=== PATIENT | male | born 1955 | race Two or more races ===

== ENCOUNTER → 2019-02-22 | Day surgery (SDC) | payer OTHER ==
[2019-01-08 12:14] LABS: HEMATOCRIT 31.2 % (38.2-49.6); HEMOGLOBIN 10.8 g/dL (14.0-18.0)
[2019-01-08 12:34] LABS: ANION GAP 10.7 mmol/L (8-16); CALCIUM 9.5 mg/dL (8.4-10.2); CREATININE, SERUM 1.24 mg/dL (0.72-1.25); POTASSIUM 5.7 mmol/L (3.5-5.1)
[~2019-02-22] MED LIST: BALANCED SALT SOLN (OPTH) 15 ML BTL IO ONE; BUPIVACAINE HC 0.75% PF 10ML VIAL INJ ONE; CHONDR SU A NA/HYALUR SOD 1 EACH KIT IO ONE; CYCLOPENTOLATE HCL 2% OPTH SOLN 2 ML BTL OP ONE; EPINEPHRINE HCL 1:1000 1ML 1 MG/ML AMP ONE; FENTANYL CITRATE/PF 100MCG/2 ML INJ ONE; FLOMAX0.4 MG PO; GATIFLOXACIN(OPTH) 5 ML LIQD ONE; LIDOCAINE 2% /EPINEPHRINE 20 ML SDV INJ ONE; LIDOCAINE HCL-PF 4% 40 MG/1 ML 5ML AMP ONE; METFORMIN HCL500 MG PO; MIDAZOLAM HCL 2 MG/2 ML VIAL ONE; MUCUS RELIEF D1 EAC1 PO; NOVOLOG100 UNIT/1 SC; OXYBUTYNIN CHLOR5 MG PO; PHENYLEPHRINE HCL 2 ML DROPS ONE; PILOCARPINE HCL(OPTH) 15 ML LIQD ONE; POVIDONE IODINE 5% (OPTH) 30 ML BTL ONE; PRILOSEC10 M1 PO; PROPOFOL IV EMULSION 10 MG/ML 20 ML VIAL ONE; TOBRAMYCIN/DEXAMETHASONE(OPTH) 3.5 GM TUBE ONE; ULTRAM50 MG PO
--- OUTSIDE RECORDS SUMMARY | 2019-02-22 07:18 | XMS REPORT ---
Author Author [facility] Address Unknown Phone Unavailable Care Team Providers Care Curtain Hemmer Automatic Name Role Phone GENE BROOKS Unavailable Unavailable SYSTEM, NOT IN PROVIDER Unavailable Unavailable Problems This patient has no known problems. Allergies, Adverse Reactions, Alerts This patient has no known allergies or adverse reactions. Medications This patient has no known medications. Results Test Description Test Time Test Comments Text Results Atomic Results Result Comments BARI SPRINGER IN OR/30 MINUTE INCREMENTS 2018-12-06 11:08:00 Reason for exam:->PYELOGRAM FLUOROSCOPIC UNIT UTILIZED-NO INTERPRETATION REQUESTED. -GLUCOSE METER 2018-12-05 10:51:00 POC-GLUCOSE METER (BEAKER) (test arax=2625) 232 mg/dL 70-110 TESTED AT [place] [address] [id number] 08:41:00* Test Item Value Reference Range Comments POTASSIUM (BEAKER) (test tfvb=165) 4.5 meq/L 3.5-5.1 Specimen slightly hemolyzed POCT-GLUCOSE [id number] 08:02:00* Test Item Value Reference Range Comments POC-GLUCOSE METER (BEAKER) (test rbwt=2181) 223 mg/dL 70-110 TESTED AT [address] [address] URINE [id number] 11:59:00* Test Item Value Reference Range Comments CULTURE (BEAKER) (test ziht=2935) >100,000 col/mL Gwen albicans RAD, CHEST, 2 [id number] 14:39:00Reason for exam:->pre-opFINAL REPORT Chest, PA and lateral. History: Preoperative. Comparison: None available. Discussion: The cardiomediastinal silhouette and pulmonary vasculature are within normal limits. The lungs are clear without ev idence of consolidation or effusion. There are no acute osseous abnormalities. The soft tissues are unremarkable. IMPRESSION: No acute cardiopulmonary abnorma lity. Signed: Janice Dumont MDReport Verified Date/Time: 11/29/2018 14:39:29 Reading Location: [address] Radiology Reading Room ALYSIS W/ MICROSCOPIC 2018-11-29 14:04:00* Test Item Value Reference Range Comments COLOR (BEAKER) (test tdja=994) Yellow CLARITY (BEAKER) (test zmtt=673) Cloudy SPECIFIC GRAVITY UA (BEAKER) (test uypl=790) 1.016 1.001-1.035 PH UA (BEAKER) (test cdlt=943) 6.0 5.0-8.0 PROTEIN UA (BEAKER) (test joqg=381) 200 mg/dL Negative GLUCOSE UA (BEAKER) (test bovf=334) >1000 mg/dL Negative KETONES UA (BEAKER) (test hiuv=254) Negative Negative BILIRUBIN UA (BEAKER) (test rtcc=507) Negative Negative BLOOD UA (BEAKER) (test hfzz=113) Moderate Negative NITRITE UA (BEAKER) (test obyr=361) Negative Negative LEUKOCYTE ESTERASE UA (BEAKER) (test ypwn=461) Large Negative UROBILINOGEN UA (BEAKER) (test seeo=047) 0.2 mg/dL 0.2-1.0 RBC UA (BEAKER) (test mser=828) 71 /HPF WBC UA (BEAKER) (test gbjy=535) 1248 /HPF YEAST (BEAKER) (test yevk=4878) Many SOURCE(BEAKER) (test ifvt=7540) BASIC METABOLIC [id number] 13:43:00* Test Item Value Reference Range Comments SODIUM (BEAKER) (test jpva=756) 134 meq/L 136-145 POTASSIUM (BEAKER) (test fmdh=973) 5.4 meq/L 3.5-5.1 CHLORIDE (BEAKER) (test zysg=997) 101 meq/L 98-107 CO2 (BEAKER) (test yfyu=835) 26 meq/L 22-29 BLOOD UREA NITROGEN (BEAKER) (test bguc=768) 35 mg/dL 7-21 CREATININE (BEAKER) (test zdfr=827) 1.49 mg/dL 0.57-1.25 GLUCOSE RANDOM (BEAKER) (test ilwm=446) 291 mg/dL 70-105 CALCIUM (BEAKER) (test kjjk=288) 9.6 mg/dL 8.4-10.2 EGFR (BEAKER) (test gerb=9599) 48 mL/min/1.73 sq m ESTIMATED GFR IS NOT ACCURATE CREATININE CLEARANCE IN PREDICTING GLOMERULAR FILTRATION RATE. ESTIMATED GFR IS NOT APPLICABLE FOR DIALYSIS PATIENTS. [id number] 12:56:00* Test Item Value Reference Range Comments PARTIAL THROMBOPLASTIN TIME (BEAKER) (test tslo=669) 31.6 seconds 22.5-36.0 PROTHROMBIN TIME/[id number] 12:55:00* Test Item Value Reference Range Comments PROTIME (BEAKER) (test tczo=497) 13.2 seconds 11.7-14.7 INR (BEAKER) (test qxmv=949) 1.0 <=5.9 RECOMMENDED COUMADIN/WARFARIN INR THERAPY RANGESSTANDARD DOSE: 2.0 - 3.0 Inclu hayley: PROPHYLAXIS for venous thrombosis, systemic embolization; TREATMENT for emily ous thrombosis and/or pulmonary embolus.HIGH RISK: Target INR is 2.5-3.5 for pat ients with mechanical heart valves.CBC W/PLT COUNT & AUTO [id number] 12:53:00* Test Item Value Reference Range Comments WHITE BLOOD CELL COUNT (BEAKER) (test wymr=149) 11.3 K/ L 3.5-10.5 RED BLOOD CELL COUNT (BEAKER) (test ecrb=427) 4.24 M/ L 4.63-6.08 HEMOGLOBIN (BEAKER) (test xorf=204) 12.0 GM/DL 13.7-17.5 HEMATOCRIT (BEAKER) (test rkbg=788) 36.2 % 40.1-51.0 MEAN CORPUSCULAR VOLUME (BEAKER) (test jcyz=641) 85.4 fL 79.0-92.2 MEAN CORPUSCULAR HEMOGLOBIN (BEAKER) (test rsts=434) 28.3 pg 25.7-32.2 MEAN CORPUSCULAR HEMOGLOBIN CONC (BEAKER) (test dxng=760) 33.1 GM/DL 32.3-36.5 RED CELL DISTRIBUTION WIDTH (BEAKER) (test kizx=514) 13.5 % 11.6-14.4 PLATELET COUNT (BEAKER) (test guat=915) 426 K/CU MM 150-450 MEAN PLATELET VOLUME (BEAKER) (test cjhg=846) 9.5 fL 9.4-12.4 NUCLEATED RED BLOOD CELLS (BEAKER) (test ikog=602) 0 /100 WBC 0-0 NEUTROPHILS RELATIVE PERCENT (BEAKER) (test jvxy=234) 74 % LYMPHOCYTES RELATIVE PERCENT (BEAKER) (test pcda=542) 17 % MONOCYTES RELATIVE PERCENT (BEAKER) (test vdbd=268) 6 % EOSINOPHILS RELATIVE PERCENT (BEAKER) (test ahgd=527) 1 % BASOPHILS RELATIVE PERCENT (BEAKER) (test fghj=501) 1 % NEUTROPHILS ABSOLUTE COUNT (BEAKER) (test iwyh=225) 8.40 K/ L 1.78-5.38 LYMPHOCYTES ABSOLUTE COUNT (BEAKER) (test uvuv=092) 1.86 K/ L 1.32-3.57 MONOCYTES ABSOLUTE COUNT (BEAKER) (test zxnl=462) 0.71 K/ L 0.30-0.82 EOSINOPHILS ABSOLUTE COUNT (BEAKER) (test emef=024) 0.15 K/ L 0.04-0.54 BASOPHILS ABSOLUTE COUNT (BEAKER) (test qogm=259) 0.12 K/ L 0.01-0.08 IMMATURE GRANULOCYTES-RELATIVE PERCENT (BEAKER) (test knum=9391) 0 % 0-1 KIDNEY IMAGING, SINGLE, FLOW/FUNCTION W/ [id number] 14:39:00FINAL REPORT PROCEDURE: Functional RENAL SCAN with Diuretic Stimulation CPT CODE: 61195 INDICATION: N13.39. Hydronephrosis PROTOCOL: 10.7 mCi of Tc-99m MAG3 was injected intravenously. Renal flow images were obtained in the posterior projection, subsequent serial posterior im ages were obtained over 30 minutes. 40 mg of furosemide was injected intravenou sly, ten minutes after tracer injection. FINDINGS: Asymmetrically perfusion to t he small left kidney in comparison to the right kidney. Initial renal activity i s divided 21.5% to the left kidney and 78.5% to the right kidney. Subsequent im ages show prompt tracer appearance in the calyces and renal pelves. Following diuretic injection, there is delayed washout from the left renal collecting syst em and abnormal dilatation of the right ureter and proximal collecting system wi th abnormal excretion into the bladder. Half-emptying times were 56 minutes past peak activity on the left and NA minutes on the right. IMPRESSION: Right-juani ed hydroureteronephrosis with suspected obstruction at the right ureterovesicula r junction and possible UPJ obstruction. Right renal function appears preserved. The left kidney is abnormal with decreased function. The half-emptying time for the left kidney baby may be related to poor function and inability to respond to diuretic but the UPJ obstruction cannot be excluded. Signed: Emigdio Ji MDR eport Verified Date/Time: 11/13/2018 14:39:20 Reading Location: [address] Reading Room , [id number] 14:36:00FINAL REPORT ABDOMINAL AND PELVIS CT DATED 11/13/2018 CLINICAL INFORMATION: N13.39 TECHNIQUE: Axial images of the abdomen and pelvis were obtained from diaphragm to the pubic symphysis with and without intravenous contrast. This exam was performed according to our departmental dose-optimization program, which includes automated exposure control, adjustment of the mA and/or kV according to patient size and/or use of interactive reconstruction technique. COMMENT: Liver and spleen are normal in size without focal abnormality. Gallbladder is contracted. No gallstone or biliary dilatation is noted. Pancreas and adrenals are unremarkable. Both kidneys are normal in size and functioning. There is moderate bilateral hydronephrosis and hydroureter. A 1 mm stone is seen in the midpole right kidney. No stone is seen in either ureter. A 9 mm cyst is seen in the midpole right kidney. There is persistent nephrogram in both kidneys worse on the right. In the right. Prostate is prominent size. There is prior TURP procedure. The urinary bladder is distended. Large amount of fecal material is seen in the large bowel suggestive of constipation. Small bowel is normal in c aliber. Appendix is not visualized. No mass, adenopathy or ascites is present. I MPRESSION: 1. Bilateral hydronephrosis and hydroureter without ureteral stone. Recommend follow-up with retrograde pyelogram or cystoscopy.2. Constipation. Sig bety: Trinidad Mahajan MDReport Verified Date/Time: 11/13/2018 14:36:54 Reading Locat ion: [facility] B1 C013Y CT Body Reading Room -[id number] 13:48:00* Test Item Value Reference Range Comments POC-CREATININE (HARISH) (test ebzu=7072) 1.2 mg/dL 0.6-1.3 TESTED AT [facility] [address] [address] POC-EGFR (HARISH) (test ahxx=4473) 61 mL/min/1.73M2
--- OUTSIDE RECORDS SUMMARY | 2019-02-22 07:18 | XMS REPORT | Clinical Summary ---
Author Author [facility] Address Unknown Phone Unavailable Care Team Providers Care Bellman Driver Name Role Phone PCP Unavailable Allergies No Known Allergies Medications End Date Status Medication Sig Dispensed Refills Start Date Active metFORMIN (GLUCOPHAGE) Take 1,000 mg 0 1000 MG tablet by mouth 2 (two) times daily with breakfast and dinner. Active omeprazole (PRILOSEC OTC) Take 20 mg by 0 20 MG tablet mouth daily. Active fexofenadine HCl (MUCINEX Take by mouth 0 ALLERGY ORAL) daily. Active DM/p-ephed/acetaminoph/do Take by mouth 0 xylam (NYQUIL D ORAL) nightly. Active melatonin 5 mg Tab tablet Take 5 mg by 0 mouth every night as needed. Active ibuprofen/diphenhydramine Take by mouth 0 cit (ADVIL PM ORAL) every evening. Active oxymetazoline (AFRIN) 2 sprays by 0 0.05 % nasal spray Nasal route 2 (two) times daily. 12/05/2019 Active oxybutynin (DITROPAN) 5 Take 1 tablet 80 tablet 0 201 MG tablet (5 mg total) 9 by mouth 3 (three) times daily as needed (bladder spasms). 12/05/2018 Discontinued insulin NPH 100 unit/mL Inject 0 (3 mL) InPn subcutaneousl y 2 (two) times daily before meals Takes 20 units in am and 10 units in pm . 12/05/2018 Discontinued Missing or Non-Formulary nightly 0 Medication Equate pm . 12/05/2018 Discontinued Missing or Non-Formulary daily OTC 0 Medication nasal spray . 12/05/2018 fluconazole (DIFLUCAN) Take 200 mg 0 200 MG tablet by mouth 9 daily Completed prior to surgery. 12/05/2018 Discontinued fluconazole (DIFLUCAN) Take 1 tablet 5 tablet 0 150 MG tablet (150 mg 9 total) by mouth daily for 5 days. 12/05/2018 Discontinued traMADol (ULTRAM) 50 mg Take 1 tablet 30 tablet 0 tablet (50 mg total) 9 by mouth every 6 (six) hours as needed for up to 10 days. Max Daily Amount: 200 mg 12/05/2018 Discontinued oxybutynin (DITROPAN) 5 Take 1 tablet 80 tablet 0 201 MG tablet (5 mg total) 9 by mouth 3 (three) times daily as needed (bladder spasms). 12/05/2018 Discontinued phenazopyridine Take 1 tablet 10 tablet 0 (PYRIDIUM) 100 MG tablet (100 mg 9 total) by mouth 3 (three) times daily as needed for up to 3 days. 12/05/2018 Discontinued tamsulosin (FLOMAX) 0.4 Take 1 30 capsule 0 mg Cap 24 hr capsule capsule (0.4 9 mg total) by mouth daily for 30 days. 12/10/2018 fluconazole (DIFLUCAN) Take 1 tablet 5 tablet 0 150 MG tablet (150 mg 9 total) by mouth daily for 5 days. 12/08/2018 phenazopyridine Take 1 tablet 10 tablet 0 (PYRIDIUM) 100 MG tablet (100 mg 9 total) by mouth 3 (three) times daily as needed for up to 3 days. 01/04/2019 tamsulosin (FLOMAX) 0.4 Take 1 30 capsule 0 mg Cap 24 hr capsule capsule (0.4 9 mg total) by mouth daily for 30 days. 12/15/2018 traMADol (ULTRAM) 50 mg Take 1 tablet 30 tablet 0 tablet (50 mg total) 9 by mouth every 6 (six) hours as needed for up to 10 days. Max Daily Amount: 200 mg Active Problems Problem Noted Date Incomplete emptying of bladder 12/05/2018 Hydronephrosis 12/05/2018 Encounters Care Team Description Date Type Specialty Marion Ge MD 12/05/2018 Anesthesia Event Uriel Dial MD CYSTOSCOPY,INSERTION URETERAL STENTS 12/05/2018 Surgery Uriel Dial MD 12/05/2018 Hospital Encounter Uriel Dial MD 11/29/2018 Hospital Encounter Uriel Dial MD 11/29/2018 Hospital Pre-Admission Testing Encounter Abigail Thompson 11/29/2018 Orders Only Uriel Dial MD Other hydronephrosis 11/13/2018 [facility] Radiology Encounter System, Provider Not In Other hydronephrosis 11/13/2018 Hospital Radiology Encounter Uriel Dial MD Other hydronephrosis (Primary Dx) 10/25/2018 Outside Orders Central Scheduling after 02/21/2018 Social History Date Tobacco Use Types Packs/Day Years Used Never Smoker Smokeless Tobacco: Never Used Alcohol Use Drinks/Week oz/Week Comments No Alcohol Habits Answer Date Recorded How often do you have a drink containing alcohol? Never 11/29/2018 How many drinks containing alcohol do you have on Not asked a typical day when you are drinking? How often do you have six or more drinks on one Not asked occasion? Sex Assigned at Date Recorded Not on file Industry Job Start Date Occupation Not on file Not on file Not on file Travel End Travel History Travel Start No recent travel history available. Last Filed Vital Signs Time Taken Vital Sign Reading 12/05/2018 12:10 PM CDT Blood Pressure 133/72 12/05/2018 12:10 PM CDT Pulse 77 12/05/2018 12:10 PM CDT Temperature 36.3 C (97.4 F) 12/05/2018 12:10 PM CDT Respiratory Rate 18 12/05/2018 12:10 PM CDT Oxygen Saturation 100% - Inhaled Oxygen - Concentration 12/05/2018 6:59 AM CDT Weight 50.1 kg (110 lb 7.2 oz) 12/05/2018 6:59 AM CDT Height 172.7 cm (5' 8") 12/05/2018 6:59 AM CDT Body Mass Index 16.79 Plan of Treatment Not on file Implants Device Identifier Shelf Expiration Date Model / Serial / Lot Implanted Type Area Manufactur er 05/09/2020 [id number] / / [id number] Stent Uret Cntour Inj [id number] IMPLANTS Right: Ureter [employer] [id number] - [id number] SCI:UROLOG Implanted: Qty: 1 on 12/05/2018 by Y/GYNECUriel Brothers MD GY 05/09/2020 [id number] / / [id number] Stent Uret Cntour Inj [id number] IMPLANTS Left: Ureter [employer] [id number] - [id number] SCI:UROLOG Implanted: Qty: 1 on 12/05/2018 by Y/Uriel Hernandez MD GY Procedures Comments Procedure Name Priority Date/Time Associated Diagnosis TRANSFUSION SERVICE 12/06/2018 REPORT - SCAN 6:04 PM CDT POCT-GLUCOSE METER Routine 12/05/2018 10:50 AM CDT FL EXECUTIVE PASTRY CHEF IN OR 30 Routine 12/05/2018 MINUTE INCREMENTS 10:40 AM CDT CYSTOSCOPY,RETROGRADES 12/05/2018 Incomplete bladder 8:30 AM CDT emptying CYSTOSCOPY,BALLOON 12/05/2018 Incomplete bladder DILATION URETERAL 8:30 AM CDT emptying STRICTURE CYSTOSCOPY,INSERTION 12/05/2018 Incomplete bladder URETERAL STENTS 8:30 AM CDT emptying ABORH, MANUAL STAT 12/05/2018 7:54 AM CDT POTASSIUM STAT 12/05/2018 7:54 AM CDT POCT-GLUCOSE METER Routine 12/05/2018 7:52 AM CDT TRANSFUSION SERVICE 11/30/2018 REPORT - SCAN 6:03 PM CDT XR CHEST 2 VIEWS Routine 11/29/2018 12:30 PM CDT ECG 12-LEAD Routine 11/29/2018 11:36 AM CDT Procedure Note - Interface, External Ris In - 11/29/2018 4:58 PM CDT Ventricula r Rate 86 BPM Atrial Rate 86 BPM P-R Interval 142 ms QRS Duration 86 ms Q-T Interval 388 ms QTC Calculatio n(Bazett) 464 ms P [place] 83 degrees R [place] 76 degrees T [place] 80 degrees Normal sinus rhythm Possible Left atrial enlargemen t Nonspecifi c ST and T wave abnormalit y Abnormal ECG No previous ECGs available ECG 12-LEAD Routine 11/29/2018 11:36 AM CDT CBC W/PLT COUNT & AUTO Routine 11/29/2018 DIFFERENTIAL 11:34 AM CDT TYPE AND SCREEN, Routine 11/29/2018 AUTOMATED 11:34 AM CDT CBC W/PLT COUNT & AUTO Routine 11/29/2018 DIFFERENTIAL 11:34 AM CDT PROTHROMBIN TIME/INR Routine 11/29/2018 11:34 AM CDT APTT Routine 11/29/2018 11:34 AM CDT BASIC METABOLIC PANEL (7) Routine 11/29/2018 11:34 AM CDT URINALYSIS W/ MICROSCOPIC Routine 11/29/2018 11:34 AM CDT URINE CULTURE Routine 11/29/2018 11:[address] ABDOMEN/PELVIS Routine 11/13/2018 Other hydronephrosis WITH/WITHOUT IV CONTRAST 2:10 PM CDT POCT-CREATININE Routine 11/13/2018 1:43 PM CDT NM KIDNEY WITH FLOW AND Routine 11/13/2018 Other hydronephrosis FUNCTION WITH 12:57 PM CDT PHARMACOLOGICAL INTERVENTION after 02/21/2018 Results * TRANSFUSION SERVICE REPORT - SCAN (12/06/2018 6:04 PM CDT) Only the most recent of 2 results within the time period is included. Narrative Performed At * POC-Glucose meter (12/05/2018 10:50 AM CDT) Only the most recent of 2 results within the time period is included. POC-Glucose Meter 232 (H)Comment: TESTED AT 70 - 110 mg/dL [facility] [id number] [facility] [id number] Specimen Blood Performing Organization Address City/State/Zipcode Phone Number [facility] [address] [place] [address] MEDICAL CENTER * [place] electricity trading analyst in or 30 minute increments (12/05/2018 10:40 AM CDT) Specimen Narrative Performed At FLUOROSCOPIC UNIT UTILIZED-NO INTERPRETATION REQUESTED. GE RIS Procedure Note Interface, External Ris In - 12/06/2018 11:08 AM CDT FLUOROSCOPIC UNIT UTILIZED-NO INTERPRETATION REQUESTED. Performing Organization Address City/[facility] Cent[facility]ode Phone Number GE [facility]IS * ABORH, manual (12/05/2018 7:54 AM CDT) ABO Grouping B [facility] Rh Factor POS [facility] Specimen Blood Performing Organization Address [facility] Centercoid Phone Number [address] * Potassium (12/05/2018 7:54 AM CDT) Potassium 4.5Comment: Specimen slightly 3.5 - 5.1 meq/L [facility] hemolyzed [facility] Specimen Blood Performing Organization Address [facility] Centercoid Phone Number [address] * XR chest 2 views (11/29/2018 12:30 PM CDT) Specimen Narrative Performed At FINAL REPORT GE RIS Chest, PA and lateral. History: Preoperative. Comparison: None available. Discussion:The cardiomediastinal silhouette and pulmonary vasculature are within normal limits. The lungs are clear without evidence of consolidation or effusion.There are no acute osseous abnormalities. The soft tissues are unremarkable. IMPRESSION: No acute cardiopulmonary abnormality. Signed: Janice Dumont MD Report Verified Date/Time:11/29/2018 14:39:29 Reading Location: [address] Radiology Reading Room Procedure Note Interface, External Ris In - 11/29/2018 2:41 PM CDT FINAL REPORT Chest, PA and lateral. History: Preoperative. Comparison: None available. Discussion: The cardiomediastinal silhouette and pulmonary vasculature are within normal limits. The lungs are clear without evidence of consolidation or effusion. There are no acute osseous abnormalities. The soft tissues are unremarkable. IMPRESSION: No acute cardiopulmonary abnormality. Signed: Janice Dumont MD Report Verified Date/Time: 11/29/2018 14:39:29 Reading Location: [address] Radiology Reading Room Performing Organization Address City/[facility]/Zipcode Phone Number GE RIS * ECG 12 lead (11/29/2018 11:36 AM CDT) Specimen Narrative Performed At Ventricular Rate 86 BPM GE MUSE Atrial Rate 86 BPM P-R Interval 142 ms QRS Duration 86 ms Q-T Interval 388 ms QTC Calculation(Bazett) 464 ms P [place] 83 degrees R [place] 76 degrees T [place] 80 degrees Normal sinus rhythm Left atrial abnormality Nonspecific ST and T wave abnormality Abnormal ECG No previous ECGs available Confirmed by Colt BAHENA MICHAEL ([id number]) on 11/30/2018 7:00:09 AM Procedure Note Interface, External Ris In - 11/30/2018 7:00 AM CDT Ventricular Rate 86 BPM Atrial Rate 86 BPM P-R Interval 142 ms QRS Duration 86 ms Q-T Interval 388 ms QTC Calculation(Bazett) 464 ms P [place] 83 degrees R [place] 76 degrees T [place] 80 degrees Normal sinus rhythm Left atrial abnormality Nonspecific ST and T wave abnormality Abnormal ECG No previous ECGs available Confirmed by Colt BAHENA MICHAEL ([id number]) on 11/30/2018 7:00:09 AM Performing Organization Address City/[facility] Centercode Phone Number [employer] MUSE * Type and screen, automated (11/29/2018 11:34 AM CDT) ABO/RH AUTOMATED (BEAKER) B POSITIVE [facility] Ab Scrn NEGATIVE [facility] Specimen Blood Performing Organization Address City/[facility]/Zipcode Phone Number [facility] [address] [place] [address] MEDICAL CENTER * CBC with platelet count + automated diff (11/29/2018 11:34 AM CDT) WBC 11.3 (H) 3.5 - 10.5 K/L [facility] RBC 4.24 (L) 4.63 - 6.08 M/L [facility] Hemoglobin 12.0 (L) 13.7 - 17.5 GM/DL [facility] Hematocrit 36.2 (L) 40.1 - 51.0 % [facility] MCV 85.4 79.0 - 92.2 fL [facility] MCH 28.3 25.7 - 32.2 pg [facility] MCHC 33.1 32.3 - 36.5 GM/DL [facility] RDW 13.5 11.6 - 14.4 % [facility] Platelets 426 150 - 450 K/CU MM [facility] MPV 9.5 9.4 - 12.4 fL [facility] nRBC 0 0 - 0 /100 WBC [facility] % Neutros 74 % [facility] % Lymphs 17 % [facility] % Monos 6 % [facility] % Eos 1 % [facility] % Baso 1 % [facility] # Neutros 8.40 (H) 1.78 - 5.38 K/L [facility] # Lymphs 1.86 1.32 - 3.57 K/L [facility] # Monos 0.71 0.30 - 0.82 K/L [facility] # Eos 0.15 0.04 - 0.54 K/L [facility] # Baso 0.12 (H) 0.01 - 0.08 K/L [facility] Immature 0 0 - 1 % [facility] Granulocytes-Relative [facility] Specimen Blood Performing Organization Address City/State/Zipcode Phone [place] [address] [phone] [place] [address] * Urinalysis w/ Microscopic (11/29/2018 11:34 AM CDT) Color, UA Yellow [facility] Clarity, UA Cloudy [facility] Specific [place], UA 1.016 1.001 - 1.035 [facility] pH, UA 6.0 5.0 - 8.0 [facility] Protein, UA 200 mg/dL (A) Negative [facility] Glucose, UA >1000 mg/dL (A) Negative [facility] Ketones, UA Negative Negative [facility] Bilirubin, UA Negative Negative [facility] Blood, UA Moderate (A) Negative [facility] Nitrite, UA Negative Negative [facility] Leukocytes, UA Large (A) Negative [facility] Urobilinogen, UA 0.2 0.2 - 1.0 mg/dL [facility] RBC, UA 71 /HPF [facility] WBC, UA 1,248 /HPF [facility] Yeast Many [facility] Specimen Source [facility] Specimen Urine Performing Organization Address City/State/Zipcode Phone Number [address] * aPTT (11/29/2018 11:34 AM CDT) PTT 31.6 22.5 - 36.0 seconds [facility] Specimen Blood Performing Organization Address City/[facility]/[place] [address] [facility] * Prothrombin time/INR (11/29/2018 11:34 AM CDT) Protime 13.2 11.7 - 14.7 seconds [facility] INR 1.0 <=5.9 [facility] Specimen Blood Narrative Performed At RECOMMENDED COUMADIN/WARFARIN INR THERAPY RANGES [facility] STANDARD DOSE: 2.0 - 3.0 Includes: PROPHYLAXIS for venous thrombosis, [facility] systemic embolization; TREATMENT for venous thrombosis and/or pulmonary embolus. HIGH RISK: Target INR is 2.5-3.5 for patients with mechanical heart valves. Performing Organization Address City/State/Zipcode Phone Number [address] [address] [facility] * Urine culture (11/29/2018 11:34 AM CDT) Result >100,000 col/mL Gwen [facility] albicans (A) [facility] Specimen Urine Performing Organization Address City/[facility] Centercode Phone Number [address] [address] [phone] [place] [address] * Basic Metabolic Panel (11/29/2018 11:34 AM CDT) Sodium 134 (L) 136 - 145 meq/L [facility] Potassium 5.4 (H) 3.5 - 5.1 meq/L [facility] Chloride 101 98 - 107 meq/L [facility] CO2 26 22 - 29 meq/L [facility] BUN 35 (H) 7 - 21 mg/dL [facility] Creatinine 1.49 (H) 0.57 - 1.25 mg/dL [facility] Glucose 291 (H) 70 - 105 mg/dL [facility] Calcium 9.6 8.4 - 10.2 mg/dL [facility] EGFR 48Comment: ESTIMATED GFR IS mL/min/1.73 sq m [facility] NOT ACCURATE CREATININE [facility] CLEARANCE IN PREDICTING GLOMERULAR FILTRATION RATE. ESTIMATED GFR IS NOT APPLICABLE FOR DIALYSIS PATIENTS. Specimen Blood Performing Organization Address City/State/Zipcode Phone Number [facility] [address] [place] [address] [facility] C[facility] * CT abdomen/pelvis without & with IV contrast (11/13/2018 2:10 PM CDT) Specimen Narrative Performed At FINAL REPORT [employer] ABDOMINAL AND PELVIS CT DATED 11/13/2018 CLINICAL INFORMATION:N13.39 TECHNIQUE:Axial images of the abdomen and pelvis were obtained from diaphragm to the pubic symphysis with and without intravenous contrast. This exam was performed according to our departmental dose-optimization program, which includes automated exposure control, adjustment of the mA and/or kV according to patient size and/or use of interactive reconstruction technique. COMMENT: Liver and spleen are normal in size without focal abnormality.Gallbladder is contracted. No gallstone or biliary dilatation [...] of constipation. Small bowel is normal in caliber. Appendix is not visualized. No mass, adenopathy or ascites is present. IMPRESSION: 1. Bilateral hydronephrosis and hydroureter without ureteral stone. Recommend follow-up with retrograde pyelogram or cystoscopy. 2. Constipation. Signed: Trinidad Mahajan MD Report Verified Date/Time:11/13/2018 14:36:54 Reading Location: [facility] C0Y CT Body Reading Room Procedure Note Interface, External Ris In - 11/13/2018 2:39 PM CDT FINAL REPORT ABDOMINAL AND PELVIS CT DATED 11/13/2018 [...] of constipation. Small bowel is normal in caliber. Appendix is not visualized. No mass, adenopathy or ascites is present. IMPRESSION: 1. Bilateral hydronephrosis and hydroureter without ureteral stone. Recommend follow-up with retrograde pyelogram or cystoscopy. 2. Constipation. Signed: Trinidad Mahajan MD Report Verified Date/Time: 11/13/2018 14:36:54 Reading Location: [address] Body Reading Room Performing Organization Address City/State/Zipcode Phone Number [employer] * POC-Creatinine (11/13/2018 1:43 PM CDT) POC-Creatinine 1.2Comment: TESTED AT [facility] 0.6 - 1.3 mg/dL [address] POC-EGFR 61 mL/min/1.73M2 [facility] Specimen Blood Performing Organization Address City/[facility]/[place] [address] [facility] * NM renal scan with diuretic (11/13/2018 12:57 PM CDT) Specimen Narrative Performed At FINAL REPORT [employer] PROCEDURE: Functional RENAL SCAN with Diuretic Stimulation CPT CODE:81021 INDICATION:N13.39. Hydronephrosis PROTOCOL:10.7 mCi of Tc-99m MAG3 was injected intravenously. Renal flow images were obtained in the posterior projection, subsequent serial posterior images were obtained over 30 minutes.40 mg of furosemide was injected intravenously, ten minutes after tracer injection. FINDINGS: Asymmetrically perfusion to the small left kidney in comparison to the right kidney. Initial renal activity is divided 21.5% to the left kidney and 78.5% to the right kidney.Subsequent images show prompt tracer appearancein the calyces and renal pelves.Following diuretic injection, there is delayed washout from the left renal collecting system and abnormal dilatation of the right ureter and proximal collecting system with abnormal excretion into the bladder. Half-emptying times were 56 minutes past peak activity on the left and NA minutes on the right. IMPRESSION: Right-sided hydroureteronephrosis with suspected obstruction at the right ureterovesicular junction and possible UPJ obstruction. Right renal function appears preserved. The left kidney is abnormal with decreased function. The half-emptying time for the left kidney baby may be related to poor function and inability to respond to diuretic but the UPJ obstruction cannot be excluded. Signed: Emigdio Ji MD Report Verified Date/Time:11/13/2018 14:39:20 Reading Location: [address] Reading Room Procedure Note Interface, External Ris In - 11/13/2018 2:41 PM CDT FINAL REPORT PROCEDURE: Functional RENAL SCAN with Diuretic Stimulation CPT CODE: 17133 INDICATION: N13.39. Hydronephrosis PROTOCOL: 10.7 mCi of Tc-99m MAG3 was injected intravenously. Renal flow images were obtained in the posterior projection, subsequent serial posterior images were obtained over 30 minutes. 40 mg of furosemide was injected intravenously, ten minutes after tracer injection. FINDINGS: Asymmetrically perfusion to the small left kidney in comparison to the right kidney. Initial renal activity is divided 21.5% to the left kidney and 78.5% to the right kidney. Subsequent images show prompt tracer appearance in the calyces and renal pelves. Following diuretic injection, there is delayed washout from the left renal collecting system and abnormal dilatation of the right ureter and proximal collecting system with abnormal excretion into the bladder. Half-emptying times were 56 minutes past peak activity on the left and NA minutes on the right. IMPRESSION: Right-sided hydroureteronephrosis with suspected obstruction at the right ureterovesicular junction and possible UPJ obstruction. Right renal function appears preserved. The left kidney is abnormal with decreased function. The half-emptying time for the left kidney baby may be related to poor function and inability to respond to diuretic but the UPJ obstruction cannot be excluded. Signed: Emigdio Ji MD Report Verified Date/Time: 11/13/2018 14:39:20 Reading Location: [address] Reading Room Performing Organization Address City/State/Zipcode Phone Number GE RIS after 02/21/2018 Insurance Payer Benefit Subscriber ID Type Phone Address Plan / Group [facility] [employer] xxxxxxxxxx [employer] EXCHANGE ([place]) [place] [address]
[2019-02-22 10:24] VITALS: BP 151/73
== END | disposition home or self-care (01) ==
LOC: OR 07:16
PROVIDERS: ATTEND Ophthalmology
DX: H25.11 Age-related nuclear cataract, right eye (principal); E11.9 Type 2 diabetes mellitus without complications; M19.90 Unspecified osteoarthritis, unspecified site; N32.89 Other specified disorders of bladder; Z72.0 Tobacco use; Z01.810 Encounter for preprocedural cardiovascular examination; Z01.812 Encounter for preprocedural laboratory examination; Z79.4 Long term (current) use of insulin; Z79.84 Long term (current) use of oral hypoglycemic drugs
CPT/HCPCS: 36415 ×2; 66982; 80048; 82948; 85014; 85018; 93005; J0171; J2001; J2250; J2704; J3010; V2632

== ENCOUNTER → 2019-03-22 | Day surgery (SDC) | payer OTHER ==
[~2019-03-22] MED LIST changes: +LIDOCAINE HCL 2% LOCAL INJ 5 ML SDV VIAL INJ ONE
--- OUTSIDE RECORDS SUMMARY | 2019-03-22 08:54 | XMS REPORT | Clinical Summary ---
Author Author [facility] Address Unknown Phone Unavailable Care Team Providers Care Bottle Washer Name Role Phone Dwight Fabioserena Zapata PCP Allergies No Known Allergies Medications End Date Status Medication Sig Dispensed Refills Start Date Active metFORMIN (GLUCOPHAGE) Take 1,000 mg 0 1000 MG tablet by mouth 2 (two) times daily with breakfast and dinner. Active omeprazole (PRILOSEC OTC) Take 20 mg by 0 20 MG tablet mouth daily. Active fexofenadine HCl (MUCINEX Take 1 tablet 0 ALLERGY ORAL) by mouth daily . Active melatonin 5 mg Tab tablet Take 5 mg by 0 mouth every night as needed (insomnia) . Active oxymetazoline (AFRIN) 1 spray by 0 0.05 % nasal spray Nasal route daily . Active latanoprost (XALATAN) Place 1 drop 0 0.005 % ophthalmic into both solutionIndications: open eyes nightly. angle glaucoma Active NOVOLOG FLEXPEN U-100 Inject 10 5 INSULIN 100 unit/mL (3 Units 9 mL) InPn subcutaneousl y daily . Active prednisoLONE acetate Place 1 drop 0 (PRED FORTE) 1 % into the 9 ophthalmic suspension right eye 4 (four) times daily. Active ketorolac (ACULAR) 0.5 % Place 1 drop 0 ophthalmic solution into the right eye 4 (four) times daily. Active insulin regular (HUMULIN Inject 30 0 R,NOVOLIN R) 100 unit/mL Units injection subcutaneousl y daily Use as directed . 02/28/2020 Active oxybutynin (DITROPAN) 5 Take 1 tablet 90 tablet 1 MG tablet (5 mg total) 9 by mouth 3 (three) times daily as needed (bladder spasms). 02/23/2020 Active acetaminophen (TYLENOL) Take 2 30 tablet 0 325 MG tablet tablets (650 9 mg total) by mouth every 6 (six) hours as needed for Pain for up to 360 days. 03/31/2019 Active bisacodyl (DULCOLAX) 5 mg Take 2 60 tablet 1 EC tablet tablets (10 9 mg total) by mouth daily for 30 days. 03/30/2019 Active phenazopyridine Take 1 tablet 30 tablet 0 (PYRIDIUM) 95 MG tablet (95 mg total) 9 by mouth 3 (three) times daily with meals for 30 days. 04/09/2019 Active morphine (MSIR) 15 MG Take 1 tablet 30 tablet 0 tablet (15 mg total) 9 by mouth every 6 (six) hours as needed for Pain for up to 40 days. Max Daily Amount: 60 mg 12/05/2018 Discontinued insulin NPH 100 unit/mL Inject 0 (3 mL) InPn subcutaneousl y 2 (two) times daily before meals Takes 20 units in am and 10 units in pm . 02/26/2019 Discontinued DM/p-ephed/acetaminoph/do Take by mouth 0 xylam (NYQUIL D ORAL) nightly. 12/05/2018 Discontinued Missing or Non-Formulary nightly 0 Medication Equate pm . 12/05/2018 Discontinued Missing or Non-Formulary daily OTC 0 Medication nasal spray . 02/28/2019 Discontinued ibuprofen/diphenhydramine Take 1 tablet 0 cit (ADVIL PM ORAL) by mouth every evening . 12/05/2018 fluconazole (DIFLUCAN) Take 200 mg [...] 5 Take 1 tablet 80 tablet 0 MG tablet (5 mg total) 9 by [...] total) by mouth daily for 5 days. 02/26/2019 Discontinued oxybutynin (DITROPAN) 5 Take 1 tablet 80 tablet 0 MG tablet (5 mg total) 9 by mouth 3 (three) times daily as needed (bladder spasms). 12/08/2018 phenazopyridine Take 1 tablet 10 tablet [...] 10 days. Max Daily Amount: 200 mg 03/10/2019 belladonna-opium (B&O Place 2 20 0 SUPPRETTES) 16.2-60 MG suppositories suppository 9 suppository (120 mg total) rectally every 6 (six) hours as needed for up to 10 days. Max Daily Amount: 480 mg 03/10/2019 traMADol (ULTRAM) 50 mg Take 2 30 tablet 0 tablet tablets (100 9 mg total) by mouth every 6 (six) hours as needed for up to 10 days. Max Daily Amount: 400 mg 03/12/2019 ciprofloxacin HCl (CIPRO) Take 1 tablet 24 tablet 0 500 MG tablet (500 mg 9 total) by mouth 2 (two) times daily for 12 days. Active Problems Problem Noted Date Sepsis 02/26/2019 Incomplete emptying of bladder 12/05/2018 Hydronephrosis 12/05/2018 Encounters Care Team Description Date Type Specialty Tariq Villa MD Bhattarai, Alok, MD Sepsis, due to unspecified organism (HCC); Gross hematuria 02/26/2019 Hospital General Internal Medicine - Encounter 02/28/2019 02/26/2019 Travel Tariq Villa MD Hematuria 02/25/2019 Telephone Internal Medicine Marion Ge MD 12/05/2018 Anesthesia Event Uriel Dial MD CYSTOSCOPY,INSERTION URETERAL STENTS 12/05/2018 Surgery Uriel Dial MD 12/05/2018 Hospital Encounter Uriel Dial MD 11/29/2018 Hospital Encounter Uriel Dial MD 11/29/2018 Hospital Pre-Admission Testing Encounter Abigail Thompson 11/29/2018 Orders Only Uriel Dial MD Other hydronephrosis 11/13/2018 Hospital Radiology Encounter System, Provider Not In Other hydronephrosis 11/13/2018 Hospital Radiology Encounter Uriel Dial MD Other hydronephrosis (Primary Dx) 10/25/2018 Outside Orders Central Scheduling after 03/21/2018 Social History Date Tobacco Use Types Packs/Day [...] Vital Signs Time Taken Vital Sign Reading 02/28/2019 8:25 AM CDT Blood Pressure 139/74 02/28/2019 8:25 AM CDT Pulse 82 02/28/2019 8:25 AM CDT Temperature 36.2 C (97.2 F) 02/28/2019 8:25 AM CDT Respiratory Rate 19 02/28/2019 8:25 AM CDT Oxygen Saturation 99% - Inhaled Oxygen - Concentration 02/26/2019 8:00 AM CDT Weight 50.1 kg (110 lb 7.2 oz) 02/26/2019 8:00 AM CDT Height 172.7 cm (5' 8") 02/26/2019 8:00 AM CDT Body Mass Index 16.79 Plan of Treatment Not on file Implants Device Identifier Shelf Expiration Date Model / Serial / Lot Implanted Type Area Manufactur er 05/09/2020 [id number] / / [id number] Stent Uret Cntour Inj [id number] IMPLANTS Right: Ureter BOSTON [id number] - [id number] SCI:UROLOG Implanted: Qty: 1 on 12/05/2018 by Benji/Uriel Hernandez MD GY 05/09/2020 [id number] / / [id number] Stent Uret Cntour Inj [id number] Left: Ureter [employer]ON [id number] - [id number] SCI:UROLOG Implanted: Qty: 1 on 12/05/2018 by Benji/Uriel Hernandez MD GY Procedures Comments Procedure Name Priority Date/Time Associated Diagnosis POCT-GLUCOSE METER Routine 02/28/2019 9:05 AM CDT POCT-GLUCOSE METER Routine 02/28/2019 8:32 AM CDT CBC W/PLT COUNT & AUTO Routine 02/28/2019 DIFFERENTIAL 4:48 AM CDT BASIC METABOLIC PANEL (7) Routine 02/28/2019 4:48 AM CDT CBC W/PLT COUNT & AUTO Routine 02/28/2019 DIFFERENTIAL 4:48 AM CDT POCT-GLUCOSE METER Routine 02/27/2019 10:07 PM CDT POCT-GLUCOSE METER Routine 02/27/2019 5:46 PM CDT POCT-GLUCOSE METER Routine 02/27/2019 12:44 PM CDT POCT-GLUCOSE METER Routine 02/27/2019 7:35 AM CDT CBC W/PLT COUNT & AUTO Routine 02/27/2019 DIFFERENTIAL 5:45 AM CDT BASIC METABOLIC PANEL (7) Routine 02/27/2019 5:45 AM CDT CBC W/PLT COUNT & AUTO Routine 02/27/2019 DIFFERENTIAL 5:45 AM CDT POCT-GLUCOSE METER Routine 02/26/2019 9:09 PM CDT POCT-GLUCOSE METER Routine 02/26/2019 5:[address] ABDOMEN/PELVIS WITH IV Routine 02/26/2019 CONTRAST 4:46 PM CDT POCT-GLUCOSE METER Routine 02/26/2019 12:27 PM CDT POCT-GLUCOSE METER Routine 02/26/2019 9:00 AM CDT PROTHROMBIN TIME/INR STAT 02/26/2019 8:11 AM CDT COMPREHENSIVE METABOLIC STAT 02/26/2019 PANEL 8:11 AM CDT BLOOD CULTURE STAT 02/26/2019 8:11 AM CDT BLOOD CULTURE STAT 02/26/2019 8:10 AM CDT (CELLAVISION MANUAL DIFF) STAT 02/26/2019 4:32 AM CDT CBC W/PLT COUNT & AUTO STAT 02/26/2019 DIFFERENTIAL 4:32 AM CDT URINALYSIS W/ REFLEX Routine 02/26/2019 URINE CULTURE 4:32 AM CDT LACTIC ACID, VENOUS STAT 02/26/2019 4:32 AM CDT CBC W/PLT COUNT & AUTO STAT 02/26/2019 DIFFERENTIAL 4:32 AM CDT URINE CULTURE Routine 02/26/2019 4:32 AM CDT TRANSFUSION SERVICE 12/06/2018 REPORT - SCAN 6:04 PM CDT POCT-GLUCOSE METER Routine 12/05/2018 10:50 AM CDT [place] CERTIFIED HYPERBARIC TECHNICIAN IN OR 30 Routine 12/05/2018 MINUTE INCREMENTS [...] ms QTC Calculatio n(Bazett) 464 ms P Troy 83 degrees R Troy 76 degrees T Troy 80 degrees Normal sinus rhythm Possible Left [...] WITH 12:57 PM CDT PHARMACOLOGICAL INTERVENTION after 03/21/2018 Results * POC-Glucose meter (02/28/2019 9:05 AM CDT) Only the most recent of 12 results within the time period is included. POC-Glucose Meter 72Comment: TESTED AT [facility] 70 - 110 mg/dL [address] Specimen Blood Performing Organization Address City/State/[place] [address] [facility] * CBC with platelet count + automated diff (02/28/2019 4:48 AM CDT) Only the most recent of 4 results within the time period is included. WBC 12.2 (H) 3.5 - 10.5 K/L [facility] RBC 3.22 (L) 4.63 - 6.08 M/L [facility] Hemoglobin 9.3 (L) 13.7 - 17.5 GM/DL [facility] Hematocrit 28.3 (L) 40.1 - 51.0 % [facility] MCV 87.9 79.0 - 92.2 fL [facility] MCH 28.9 25.7 - 32.2 pg [facility] MCHC 32.9 32.3 - 36.5 GM/DL [facility] RDW 12.7 11.6 - 14.4 % [facility] Platelets 348 150 - 450 K/CU MM [facility] MPV 9.3 (L) 9.4 - 12.4 fL [facility] nRBC 0 0 - 0 /100 WBC [facility] % Neutros 67 % [facility] % Lymphs 12 % [facility] % Monos 11 % [facility] % Eos 8 % [facility] % Baso 1 % [facility] # Neutros 8.11 (H) 1.78 - 5.38 K/L [facility] # Lymphs 1.43 1.32 - 3.57 K/L [facility] # Monos 1.39 (H) 0.30 - 0.82 K/L [facility] # Eos 1.01 (H) 0.04 - 0.54 K/L [facility] # Baso 0.17 (H) 0.01 - 0.08 K/L [facility] Immature 0 0 - 1 % [facility] Granulocytes-[facility] Specimen Blood Performing Organization Address City/State/Zipcode Phone Number [facility] [address] [place] [address] [facility] * Basic metabolic panel (02/28/2019 4:48 AM CDT) Only the most recent of 3 results within the time period is included. Sodium 136 136 - 145 meq/L [facility] Potassium 4.3 3.5 - 5.1 meq/L [facility] Chloride 108 (H) 98 - 107 meq/L [facility] CO2 21 (L) 22 - 29 meq/L [facility] BUN 17 7 - 21 mg/dL [facility] Creatinine 1.15 0.57 - 1.25 mg/dL [facility] Glucose 90 70 - 105 mg/dL [facility] Calcium 8.4 8.4 - 10.2 mg/dL [facility] EGFR 64Comment: ESTIMATED GFR IS mL/min/1.73 sq m [facility] NOT ACCURATE [facility] CLEARANCE IN PREDICTING GLOMERULAR FILTRATION RATE. ESTIMATED GFR IS NOT APPLICABLE FOR DIALYSIS PATIENTS. Specimen Blood Performing Organization Address City/State/Zipcode Phone Number [facility] [address] [place] [address] [facility] * CT abdomen/pelvis with IV contrast (02/26/2019 4:46 PM CDT) Specimen Narrative Performed At FINAL REPORT [facility] ABDOMINAL AND PELVIS CT DATED 02/26/2019 COMPARISON: November 13, 2018 CLINICAL INFORMATION:Pyelonephritis, complicated TECHNIQUE:Axial images of the abdomen and pelvis were obtained from diaphragm to the pubic symphysis with GI and intravenous contrast. This exam was performed according to our departmental dose-optimization program, which includes automated exposure control, adjustment of the mA and/or kV according to patient size and/or use of interactive reconstruction technique. COMMENT: Liver and spleen are normal in size without focal abnormality.Gallbladder is distended. No gallstone or biliary dilatation is noted. Pancreas and adrenals are unremarkable. Left kidney is atrophic. Right kidney is normal in size. A 9 mm cyst is seen in the midpole right kidney. A 2 mm stone is seen in the right kidney. There is persistent bilateral hydronephrosis and hydroureter. No ureteral stone is seen. The urinary bladder is contracted. There is wall thickening involving the urinary bladder. Prostate is normal in size. The opacified small bowel is unremarkable. The evaluation of the large bowel is limited secondary to insufficient amount of GI contrast. Large amount fecal material is seen in the large bowel suggestive of constipation. Appendix is not visualized. No mass, adenopathy or ascites is present. IMPRESSION: 1. Atrophic left kidney with persistent bilateral hydronephrosis and hydroureter. 2. Right renal stone and right renal cyst. 3. Wall thickening involving the urinary bladder secondary to cystitis or neoplasm. 4. Constipation. Signed: Trinidad Mahajan MD Report Verified Date/Time:02/26/2019 19:02:07 Reading Location: [facility] B1 C013Y CT Body Reading Room Procedure Note Interface, External Ris In - 02/26/2019 7:04 PM CDT FINAL REPORT ABDOMINAL AND PELVIS CT DATED 02/26/2019 COMPARISON: November 13, 2018 CLINICAL INFORMATION: Pyelonephritis, complicated TECHNIQUE: Axial images of the abdomen and pelvis were obtained from diaphragm to the pubic symphysis with GI and intravenous contrast. This exam was performed according to our departmental dose-optimization program, which includes automated exposure control, adjustment of the mA and/or kV according to patient size and/or use of interactive reconstruction technique. COMMENT: Liver and spleen are normal in size without focal abnormality. Gallbladder is distended. No gallstone or biliary dilatation is noted. Pancreas and adrenals are unremarkable. Left kidney is atrophic. Right kidney is normal in size. A 9 mm cyst is seen in the midpole right kidney. A 2 mm stone is seen in the right kidney. There is persistent bilateral hydronephrosis and hydroureter. No ureteral stone is seen. The urinary bladder is contracted. There is wall thickening involving the urinary bladder. Prostate is normal in size. The opacified small bowel is unremarkable. The evaluation of the large bowel is limited secondary to insufficient amount of GI contrast. Large amount fecal material is seen in the large bowel suggestive of constipation. Appendix is not visualized. No mass, adenopathy or ascites is present. IMPRESSION: 1. Atrophic left kidney with persistent bilateral hydronephrosis and hydroureter. 2. Right renal stone and right renal cyst. 3. Wall thickening involving the urinary bladder secondary to cystitis or neoplasm. 4. Constipation. Signed: Trinidad Mahajan MD Report Verified Date/Time: 02/26/2019 19:02:07 Reading Location: [facility] B1 C013Y CT Body Reading Room Performing Organization Address City/[facility] Phone Number [facility] * Blood culture (02/26/2019 8:11 AM CDT) Only the most recent of 2 results within the time period is included. Result No growth in 5 days [facility] Specimen Blood Performing Organization Address [facility] Phone Number [address] [address] [facility] * Prothrombin time/INR (02/26/2019 8:11 AM CDT) Only the most recent of 2 results within the time period is included. Protime 13.0 11.9 - 14.2 seconds [facility] INR 1.0 <=5.9 [facility] Specimen Blood Narrative Performed At Effective 12/27/2018: PT Reference Range Change [facility] New: 11.9-14.2Previous: 11.7-14.7 [facility] RECOMMENDED COUMADIN/WARFARIN INR THERAPY RANGES STANDARD DOSE: 2.0-3.0Includes: PROPHYLAXIS for venous thrombosis, systemic embolization; TREATMENT for venous thrombosis and/or pulmonary embolus. HIGH RISK: Target INR is 2.5-3.5 for patients wiht mechanical heart valves. Performing Organization Address [facility] Phone Number [address] [address] [facility] * Comprehensive metabolic panel (02/26/2019 8:11 AM CDT) Protein, Total 6.8 6.0 - 8.3 gm/dL [facility] Albumin 3.6 3.5 - 5.0 g/dL [facility] Alkaline Phosphatase 68 40 - 150 U/L [facility] Total Bilirubin 0.6 0.2 - 1.2 mg/dL [facility] Sodium 136 136 - 145 meq/L [facility] Potassium 4.6 3.5 - 5.1 meq/L [facility] Chloride 105 98 - 107 meq/L [facility] CO2 26 22 - 29 meq/L [facility] BUN 21 7 - 21 mg/dL [facility] Creatinine 1.20 0.57 - 1.25 mg/dL [facility] Glucose 176 (H) 70 - 105 mg/dL [facility] Calcium 8.6 8.4 - 10.2 mg/dL [facility] AST 13 5 - 34 U/L [facility] ALT 7 6 - 55 U/L [facility] EGFR 61Comment: ESTIMATED GFR IS mL/min/1.73 sq m [facility] NOT ACCURATE [facility] CLEARANCE IN PREDICTING GLOMERULAR FILTRATION RATE. ESTIMATED GFR IS NOT APPLICABLE FOR DIALYSIS PATIENTS. Specimen Blood Performing Organization Address City/State/Zipcode Phone Number [facility] [address] [place] [address] [facility] * Urinalysis w/Microscopic + Reflex to Culture (02/26/2019 4:32 AM CDT) Color, UA Red [facility] Clarity, UA Cloudy [facility] Specific Pingree, UA 1.010 1.001 - 1.035 [facility] pH, UA 7.0 5.0 - 8.0 [facility] Protein, UA 600 mg/dL (A) Negative [facility] Glucose, UA 500 mg/dL (A) Negative [facility] Ketones, UA Negative Negative [facility] Bilirubin, UA Negative Negative [facility] Blood, UA Large (A) Negative [facility] Nitrite, UA Negative Negative [facility] Leukocytes, UA Large (A) Negative [facility] Urobilinogen, UA 0.2 0.2 - 1.0 mg/dL [facility] RBC, UA 4,020 /HPF [facility] WBC, UA 477 /HPF [facility] Specimen Source [facility] Specimen Urine Performing Organization Address City/[facility]/Zipcode Phone Number [facility] [address] [place] [address] [facility] * Manual Differential (02/26/2019 4:32 AM CDT) % Neutros 81 % [facility] % Lymphs 11 % [facility] % Monos 7 % [facility] % Eos 1 % [facility] # Neutros 11.66 (H) 1.78 - 5.38 K/ul [facility] # Lymphs 1.58 1.32 - 3.57 K/ul [facility] # Monos 1.01 (H) 0.30 - 0.82 K/uL [facility] # Eos 0.14 0.04 - 0.54 K/uL [facility] Total Counted 100 [facility] Platelet Morphology Normal [facility] Smudge Cells Present [facility] Poikilocytes 1+ few [facility] Platelet Conc Adequate [facility] Specimen Blood Narrative Performed At Received comment: [facility] User comments: [facility] Slide comments: Performing Organization Address City/[facility]/Zipcode Phone Number [facility] [address] [place] [address] [facility] * Lactic acid, venous (02/26/2019 4:32 AM CDT) Lactate, Venous 1.1 0.5 - 2.2 mmol/L [facility] Specimen Blood Performing Organization Address City/[facility] Phone Number [place] [phone] * Urine culture (02/26/2019 4:32 AM CDT) Only the most recent of 2 results within the time period is included. Result See comment [facility] Specimen Urine Narrative Performed At <10,000 col/mL Yeast [facility] Performing Organization Address [facility] Phone Number [address] * TRANSFUSION SERVICE REPORT - SCAN (12/06/2018 6:04 PM CDT) Only the most recent of 2 results within the time period is included. Narrative Performed At * FL operator weapon locating radar in or 30 minute increments (12/05/2018 10:40 AM CDT) Specimen Narrative Performed At FLUOROSCOPIC UNIT UTILIZED-NO INTERPRETATION REQUESTED. [facility] Procedure Note Interface, External Ris In - 12/06/2018 11:08 AM CDT FLUOROSCOPIC UNIT UTILIZED-NO INTERPRETATION REQUESTED. Performing Organization Address City/[facility] Phone Number [facility] * ABORH, manual (12/05/2018 7:54 AM CDT) ABO Grouping B [facility] Rh Factor POS [facility] Specimen Blood Performing Organization Address City/[facility] [place] [phone] [place] [address] * Potassium (12/05/2018 7:54 AM CDT) Potassium 4.5Comment: Specimen slightly 3.5 - 5.1 meq/L [facility] hemolyzed [facility] Specimen Blood Performing Organization Address City/[facility]/Zipcode Phone Number [facility] [address] [place] [address] [facility] * XR chest 2 views (11/29/2018 12:30 [...] MD Report Verified Date/Time:11/29/2018 14:39:29 Reading Location: [address] Radiology Reading Room Procedure Note Interface, [...] Report Verified Date/Time: 11/29/2018 14:39:29 Reading Location: [address] Radiology Reading Room Performing Organization Address City/State/[facility] Phone Number [facility] * ECG 12 lead (11/29/2018 11:36 AM CDT) Specimen Narrative Performed At Ventricular Rate 86 BPM [facility] Atrial Rate 86 BPM P-R Interval 142 ms QRS Duration 86 ms Q-T Interval 388 ms QTC Calculation(Bazett) 464 ms P Troy 83 degrees R Troy 76 degrees T Troy 80 degrees Normal sinus rhythm Left atrial abnormality Nonspecific ST and T wave abnormality Abnormal ECG No previous ECGs available Confirmed by Colt BAHENA, YUNG ([id number]) on 11/30/2018 7:00:09 AM Procedure Note Interface, External Ris In - 11/30/2018 7:00 AM CDT Ventricular Rate 86 BPM Atrial Rate 86 BPM P-R Interval 142 ms QRS Duration 86 ms Q-T Interval 388 ms QTC Calculation(Bazett) 464 ms P Troy 83 degrees R Troy 76 degrees T Troy 80 degrees Normal sinus rhythm Left atrial abnormality Nonspecific ST and T wave abnormality Abnormal ECG No previous ECGs available Confirmed by Colt BAHENA MICHAEL ([id number]) on 11/30/2018 7:00:09 AM Performing Organization Address City/State/Zipcode Phone Number [facility] * Type and screen, automated (11/29/2018 11:34 AM CDT) ABO/RH AUTOMATED (BEAKER) B POSITIVE [facility] Ab Scrn NEGATIVE [facility] Specimen Blood Performing Organization Address City/[facility]/Zipcode Phone Number [facility] [address] [place] [address] [facility] * Urinalysis w/ Microscopic (11/29/2018 11:34 AM CDT) Color, UA Yellow [facility] Clarity, UA Cloudy [facility] Specific Pingree, UA 1.016 1.001 - 1.035 [facility] pH, UA 6.0 5.0 - 8.0 [facility] Protein, UA 200 mg/dL (A) Negative [facility] Glucose, UA >1000 mg/dL (A) Negative [facility] Ketones, UA Negative Negative [facility] Bilirubin, UA Negative Negative [facility] Blood, UA Moderate (A) Negative [facility] Nitrite, UA Negative Negative [facility] Leukocytes, UA Large (A) Negative [facility] Urobilinogen, UA 0.2 0.2 - 1.0 mg/dL [facility] RBC, UA 71 /HPF [facility] WBC, UA 1,248 /HPF [facility] Yeast Many [facility] Specimen Source [facility] Specimen Urine Performing Organization Address City/State/Zipcode Phone Number [facility] [address] [place] [address] [facility] * aPTT (11/29/2018 11:34 AM CDT) PTT 31.6 22.5 - 36.0 seconds [facility] Specimen Blood Performing Organization Address City/State/Zipcode Phone Number [facility] [address] [place] [address] [facility] * CT abdomen/pelvis without & with IV contrast (11/13/2018 2:10 PM CDT) Specimen Narrative Performed At FINAL REPORT [facility] ABDOMINAL AND PELVIS CT DATED 11/13/2018 CLINICAL [...] MD Report Verified Date/Time:11/13/2018 14:36:54 Reading Location: [facility] B1 C013Y CT Body Reading Room Procedure Note Interface, [...] Report Verified Date/Time: 11/13/2018 14:36:54 Reading Location: [facility] B1 C013Y CT Body Reading Room Performing Organization Address City/State/Zipcode Phone Number [facility] * POC-Creatinine (11/13/2018 1:43 PM CDT) POC-Creatinine 1.2Comment: TESTED AT [facility] 0.6 - 1.3 mg/dL [facility] [address] [facility] [id number] [facility] POC-EGFR 61 mL/min/1.73M2 [facility] Specimen Blood Performing Organization Address City/State/Zipcode Phone Number [facility] [address] [place] [address] [facility] * NM renal scan with diuretic (11/13/2018 12:57 PM CDT) Specimen Narrative Performed At FINAL REPORT [facility] PROCEDURE: Functional RENAL SCAN with Diuretic Stimulation CPT CODE:25306 INDICATION:N13.39. Hydronephrosis PROTOCOL:10.7 mCi of Tc-99m MAG3 [...] the UPJ obstruction cannot be excluded. Signed: Alfonso Ji MD Report Verified Date/Time:11/13/2018 14:39:20 Reading Location: [address] Reading Room Procedure Note Interface, External Ris In - 11/13/2018 2:41 PM CDT FINAL REPORT PROCEDURE: Functional RENAL SCAN with Diuretic Stimulation CPT CODE: 93780 INDICATION: N13.39. Hydronephrosis PROTOCOL: 10.7 mCi of [...] the UPJ obstruction cannot be excluded. Signed: Alfonso Ji MD Report Verified Date/Time: 11/13/2018 14:39:20 Reading Location: [address] Reading Room Performing Organization Address City/State/Zipcode Phone Number [facility] RIS after 03/21/2018 Insurance Payer Benefit Subscriber ID Type Phone Address Plan / Group [employer] xxxxxxxxxx [employer]CHANGE (Home) [place] [address] Advance Directives For more information, please contact: [facility] [address] [place] [phone] Date Inactivated Comments Code Status Date Activated 02/28/2019 3:21 PM Full Code 02/26/2019 4:15 AM This code status was determined by: Patient
--- OUTSIDE RECORDS SUMMARY | 2019-03-22 08:54 | XMS REPORT | Summary of Care ---
Author Author [facility] Organization [facility] Address Unknown Phone Unavailable Care Team Providers Care Hairmasters Manager Name Role Phone Fabio Quintanilla PCP Reason for Referral * Consult, Test & Treat (Routine) Referred By Contact Referred To Contact Status Reason Specialty Diagnoses / Procedures Tariq Loyola MD [address] [place] [id number] Margarito Moreno MD [address] [place] [phone] Pending Consult, Test, and Urology Diagnoses Treat Hydronephrosis, unspecified hydronephrosis type P rocedures CA OFFICE OUTPATIENT NEW 30 MINUTES Reason for Visit * Reason Comments Follow Up Encounter Details Care Team Description Date Type Department Tariq Loyola MD [address] [place] [address] [id number] Follow Up 03/09/2019 Office Visit [facility] at [facility]. [address] [place] [phone] Allergies No Known Allergiesdocumented as of this encounter (statuses as of 03/09/2019) Medications End Date Status Medication Sig Dispensed Refills Start Date Active metformin (GLUCOPHAGE) Take 1,000 mg 0 1000 MG tablet by mouth two times daily. Active Insulin Zinc Human Inject into 0 (NOVOLIN L SC) the skin. Active oxybutynin (DITROPAN) 5 Take 1 Tab by 90 Tab 1 10/04/201 MG tabletIndications: mouth 3 times 9 Hydronephrosis, daily. Stop 4 unspecified days prior to hydronephrosis type, study Bladder spasm Active Tamsulosin HCl 0.4 MG Take 0.4 mg 30 Cap 2 CAPSIndications: by mouth at 9 Bilateral kidney stones, bedtime. Hematuria, unspecified type, Hydronephrosis, unspecified hydronephrosis type, Retention of urine 03/09/2019 Discontinued nitrofurantoin, Take 1 Cap by 28 Cap 0 macrocrystal-monohydrate, mouth two 9 (MACROBID) 100 MG times daily. capsuleIndications: Hematuria, unspecified type, Hydronephrosis, unspecified hydronephrosis type, Retention of urine 03/09/2019 Discontinued nitrofurantoin, Take 1 Cap by 28 Cap 0 macrocrystal-monohydrate, mouth two 9 (MACROBID) 100 MG times daily. capsuleIndications: Acute cystitis without hematuria 03/09/2019 Discontinued fluconazole (DIFLUCAN) Take 1 Tab by 5 Tab 0 200 MG tablet mouth daily. 9 documented as of this encounter (statuses as of 03/09/2019) Active Problems No known active problemsdocumented as of this encounter (statuses as of 03/09/2019) Social History Date Tobacco Use Types Packs/Day Years Used Never Smoker Smokeless Tobacco: Never Used Sex Assigned at Date Recorded Not on file Industry Job Start Date Occupation Not on file Not on file Not on file Travel End Travel History Travel Start No recent travel history available. documented as of this encounter Last Filed Vital Signs Reading Time Taken Comments Vital Sign 138/77 03/09/2019 2:46 PM CDT Blood Pressure 89 03/09/2019 2:46 PM CDT Pulse - - Temperature - - Respiratory Rate - - Oxygen Saturation - - Inhaled Oxygen Concentration 53.1 kg (117 lb) 03/09/2019 2:46 PM CDT Weight 172.7 cm (5' 8") 03/09/2019 2:46 PM CDT Height 17.79 03/09/2019 2:46 PM CDT Body Mass Index documented in this encounter Progress Notes * Nancy Ortiz CMA - 03/09/2019 2:42 PM CDT HPI Review of Systems Constitutional: Negative. HENT: Positive for congestion and sinus pressure. Eyes: Positive for visual disturbance. Respiratory: Negative. Cardiovascular: Negative. Gastrointestinal: Negative. Endocrine: Negative. Genitourinary: Negative. Musculoskeletal: Negative. Skin: Negative. Allergic/Immunologic: Negative. Neurological: Negative. Hematological: Negative. Psychiatric/Behavioral: Negative. Physical Exam * Tariq Loyola MD - 03/09/2019 2:20 PM CDT Referring Physician Fabio Quintanilla [address] [place] [address] Patient Name: Ronald Rose :1955 [facility] ID#:[id number] Mr. Rose is a 63 y.o. year old male who present to me for evaluation. Pt was in hospital in 05/18 for back pain and was found to have urinary retention with bilateral hydronephrosis. Pt had vivar catheter and was drained of 4 Liters of u rine. Pt discharged home with indwelling catheter. Pt saw urologist and had fol ey removed but on followup found to not be emptying. Pt did not receive further treatment for lack of insurance. Type 2 DM on insulin/pills. + nocturnal enur esis, freq q3-4hr, no urgency, hesitancy, weak stream, intermittency, abd strain ing, pv dribbling, incomplete emptying, no dysuria/hematuria. Had infection whe n hospitalized. + overflow incontinence. Pt with h/o urinary retention and bilateral hydro with bladder drained here for VUDS and cysto. Pt will see Dr. Dial next week for bilateral hydro. VUDS: Early first sensation, no leak with cough/valsalva, no detrusor overactivi ty. Normal compliance. Pt filled to 328ml. Pt voided 80ml with pdetqmax 20cm wit h qmax 3ml/sec. EMG relaxed during most of void. No reflux by fluoro. Cysto: normal urethra, mild bilobar enlargement, bladder with normal uo's, mild trabeculation, mild mucosal changes related to chronic vivar catheter, no bladde r masses. Assessment: 1. Detrusor underactivity with urinary retention 2. Bilateral hydronephrosis with bladder decompressed Pt has seen Dr. Dial and is s/p bilateral balloon dilation of ureteral stenosis. On CIC TID before and here for followup with indwelling catheter. Pt admitted to [facility] for sepsis in 02/16. Pt was having trouble passing straight catheter with bleeding and was not voiding on own. No fevers but burning in pen is. Discharged with vivar and on cipro. CT scan showed: Left kidney is atrophic. Right kidney is [...] secondary to cystitis or neoplasm. 4. Constipation. Past Medical History: Diagnosis Date Arthritis BP (high blood pressure) Cataract Diabetes Glaucoma H/O seasonal allergies High cholesterol Hydronephrosis Irregular heart beat Prostate disorder Sepsis urosepsis Past Surgical History: Procedure Laterality Date HX CIRCUMCISION HX URETER STENT PLACEMENT Medications: Current Outpatient Medications: Insulin Zinc Human (NOVOLIN L SC), Inject into the skin., Disp: , Rfl: metformin (GLUCOPHAGE) 1000 MG tablet, Take 1,000 mg by mouth two times jordan ly., Disp: , Rfl: oxybutynin (DITROPAN) 5 MG tablet, Take 1 Tab by mouth 3 times daily. Stop 4 days prior to study, Disp: 90 Tab, Rfl: 1 Tamsulosin HCl 0.4 MG CAPS, Take 0.4 mg by mouth at bedtime., Disp: 30 Cap, Rfl: 2 Outpatient Medications Prior to Visit Medication Sig Dispense Refill [DISCONTINUED] fluconazole Take 1 Tab by mouth daily. 5 Tab 0 Insulin Zinc Human (NOVOLIN L SC) Inject into the skin. metformin Take 1,000 mg by mouth two times daily. [DISCONTINUED] nitrofurantoin (macrocrystal-monohydrate) Take 1 Cap by mouth two times daily. 28 Cap 0 [DISCONTINUED] nitrofurantoin (macrocrystal-monohydrate) Take 1 Cap by mouth two times daily. 28 Cap 0 oxybutynin Take 1 Tab by mouth 3 times daily. Stop 4 days prior to study 90 Tab 1 Tamsulosin HCl Take 0.4 mg by mouth at bedtime. 30 Cap 2 No facility-administered medications prior to visit. Social History Socioeconomic History Marital status: Single Spouse name: Not on file Number of children: Not on file Years of education: Not on file Highest education level: Not on file Occupational History Not on file Social Needs Financial resource strain: Not on file Food insecurity: Worry: Not on file Inability: Not on file Transportation needs: Medical: Not on file Non-medical: Not on file Tobacco Use Smoking status: Never Smoker Smokeless tobacco: Never Used Substance and Sexual Activity Alcohol use: Not on file Drug use: Not on file Sexual activity: Not on file Lifestyle Physical activity: Days per week: Not on file Minutes per session: Not on file Stress: Not on file Relationships Social connections: Talks on phone: Not on file Gets together: Not on file Attends yazdanism service: Not on file Active member of club or organization: Not on file Attends meetings of clubs or organizations: Not on file Relationship status: Not on file Intimate partner violence: Fear of current or ex partner: Not on file Emotionally abused: Not on file Physically abused: Not on file Forced sexual activity: Not on file Other Topics Concerns: Not on file Social History Narrative Not on file family history includes Chronic Renal Failure in his brother; Diabetes in his mo ther; Heart Attack in his father. No Known Allergies Review of Systems: Constitutional: Negative. HENT: Positive for postnasal drip and sinus pressure. Eyes: Negative. Respiratory: Positive for cough. Cardiovascular: Negative. Gastrointestinal: Negative. Endocrine: Negative. Genitourinary: Positive for decreased urine volume and difficulty urinating. Musculoskeletal: Negative. Skin: Positive for rash and wound. Allergic/Immunologic: Negative. Neurological: Negative. Hematological: Negative. Psychiatric/Behavioral: Positive for sleep disturbance. All other systems reviewed and are negative. Physical Exam: Vitals: see in note above GENERAL: Well developed, well nourished, in no acute distress HEAD: Normocephalic and atraumatic CHEST Regular respiratory rate NEURO: BUSH well. Patient alert and oriented x3. PSYCH: Alert and cooperative; normal mood and affect; normal attention span and con centration Most Recent Labs: Results for orders placed or performed in visit on 02/26/19 (from the past 4032 hour(s)) URINE CULTURE Collection Time: 02/26/19 4:32 AM Result Value Ref Range CULTURE See comment Results for orders placed or performed in visit on 02/26/19 (from the past 4032 hour(s)) CULT-BLD ROUT-BOB([facility]) Collection Time: 02/26/19 8:10 AM Result Value Ref Range CULTURE No growth in 5 days CULT-BLD ROUT-BOB([facility]) Collection Time: 02/26/19 8:11 AM Result Value Ref Range CULTURE No growth in 5 days POCT GLUCOSE Collection Time: 02/26/19 12:27 PM Result Value Ref Range GLUCOSE P.O.C. 144 (H) 70 - 110 mg/dL POCT GLUCOSE Collection Time: 02/26/19 5:17 PM Result Value Ref Range GLUCOSE P.O.C. 130 (H) 70 - 110 mg/dL POCT GLUCOSE Collection Time: 02/26/19 9:09 PM Result Value Ref Range GLUCOSE P.O.C. 161 (H) 70 - 110 mg/dL BASIC METABOLIC PANEL Collection Time: 02/27/19 5:45 AM Result Value Ref Range SODIUM 131 (L) 136 - 145 meq/L POTASSIUM 4.0 3.5 - 5.1 meq/L CHLORIDE 104 98 - 107 meq/L CO2 22 22 - 29 meq/L BLOOD UREA NITROGEN 16 7 - 21 mg/dL CREATININE 1.13 0.57 - 1.25 mg/dL GLUCOSE 103 70 - 105 mg/dL CALCIUM 8.0 (L) 8.4 - 10.2 mg/dL EGFR 66 mL/min/1.73 sq m CBC W/AUTO DIFF WITH PLATELETS Collection Time: 02/27/19 5:45 AM Result Value Ref Range WHITE BLOOD CELL COUNT 10.6 (H) 3.5 - 10.5 K/ L RED BLOOD CELL COUNT 3.10 (L) 4.63 - 6.08 M/ L HEMOGLOBIN 9.1 (L) 13.7 - 17.5 GM/DL HEMATOCRIT 26.8 (L) 40.1 - 51.0 % MEAN CORPUSCULAR VOLUME 86.5 79.0 - 92.2 fL MEAN CORPUSCULAR HEMOGLOBIN 29.4 25.7 - 32.2 pg MEAN CORPUSCULAR HEMOGLOBIN CONC 34.0 32.3 - 36.5 GM/DL RED CELL DISTRIBUTION WIDTH 12.9 11.6 - 14.4 % PLATELET COUNT 335 150 - 450 K/CU MM MEAN PLATELET VOLUME 9.4 9.4 - 12.4 fL NUCLEATED RED BLOOD CELLS 0 0 - 0 /100 WBC NEUTROPHILS % 63 % LYMPHOCYTES % 16 % MONOCYTES % 11 % EOSINOPHILS % 8 % BASOPHILS % 2 % NEUTROPHILS ABSOLUTE COUNT 6.63 (H) 1.78 - 5.38 K/ L LYMPHOCYTES ABSOLUTE COUNT 1.72 1.32 - 3.57 K/ L MONOCYTES ABSOLUTE COUNT 1.12 (H) 0.30 - 0.82 K/ L EOSINOPHILS ABSOLUTE COUNT 0.88 (H) 0.04 - 0.54 K/ L BASOPHILS ABSOLUTE COUNT 0.17 (H) 0.01 - 0.08 K/ L IMMATURE GRANULOCYTES 0 0 - 1 % POCT GLUCOSE Collection Time: 02/27/19 7:35 AM Result Value Ref Range GLUCOSE P.O.C. 89 70 - 110 mg/dL POCT GLUCOSE Collection Time: 02/27/19 12:44 PM Result Value Ref Range GLUCOSE P.O.C. 161 (H) 70 - 110 mg/dL POCT GLUCOSE Collection Time: 02/27/19 5:46 PM Result Value Ref Range GLUCOSE P.O.C. 165 (H) 70 - 110 mg/dL POCT GLUCOSE Collection Time: 02/27/19 10:07 PM Result Value Ref Range GLUCOSE P.O.C. 162 (H) 70 - 110 mg/dL CBC W/AUTO DIFF WITH PLATELETS Collection Time: 02/28/19 4:48 AM Result Value Ref Range WHITE BLOOD CELL COUNT 12.2 (H) 3.5 - 10.5 K/ L RED BLOOD CELL COUNT 3.22 (L) 4.63 - 6.08 M/ L HEMOGLOBIN 9.3 (L) 13.7 - 17.5 GM/DL HEMATOCRIT 28.3 (L) 40.1 - 51.0 % MEAN CORPUSCULAR VOLUME 87.9 79.0 - 92.2 fL MEAN CORPUSCULAR HEMOGLOBIN 28.9 25.7 - 32.2 pg MEAN CORPUSCULAR HEMOGLOBIN CONC 32.9 32.3 - 36.5 GM/DL RED CELL DISTRIBUTION WIDTH 12.7 11.6 - 14.4 % PLATELET COUNT 348 150 - 450 K/CU MM MEAN PLATELET VOLUME 9.3 (L) 9.4 - 12.4 fL NUCLEATED RED BLOOD CELLS 0 0 - 0 /100 WBC NEUTROPHILS % 67 % LYMPHOCYTES % 12 % MONOCYTES % 11 % EOSINOPHILS % 8 % BASOPHILS % 1 % NEUTROPHILS ABSOLUTE COUNT 8.11 (H) 1.78 - 5.38 K/ L LYMPHOCYTES ABSOLUTE COUNT 1.43 1.32 - 3.57 K/ L MONOCYTES ABSOLUTE COUNT 1.39 (H) 0.30 - 0.82 K/ L EOSINOPHILS ABSOLUTE COUNT 1.01 (H) 0.04 - 0.54 K/ L BASOPHILS ABSOLUTE COUNT 0.17 (H) 0.01 - 0.08 K/ L IMMATURE GRANULOCYTES 0 0 - 1 % BASIC METABOLIC PANEL Collection Time: 02/28/19 4:48 AM Result Value Ref Range SODIUM 136 136 - 145 meq/L POTASSIUM 4.3 3.5 - 5.1 meq/L CHLORIDE 108 (H) 98 - 107 meq/L CO2 21 (L) 22 - 29 meq/L BLOOD UREA NITROGEN 17 7 - 21 mg/dL CREATININE 1.15 0.57 - 1.25 mg/dL GLUCOSE 90 70 - 105 mg/dL CALCIUM 8.4 8.4 - 10.2 mg/dL EGFR 64 mL/min/1.73 sq m POCT GLUCOSE Collection Time: 02/28/19 8:32 AM Result Value Ref Range GLUCOSE P.O.C. 66 (L) 70 - 110 mg/dL POCT GLUCOSE Collection Time: 02/28/19 9:05 AM Result Value Ref Range GLUCOSE P.O.C. 72 70 - 110 mg/dL Results for orders placed or performed in visit on 01/03/19 (from the past 4032 hour(s)) POCT URINALYSIS DIPSTICK Collection Time: 01/03/19 10:21 AM Result Value Ref Range COLOR UA Rahel YELLOW/STRAW CLARITY UA Cloudy CLEAR GLUCOSE UA Negative NEGATIVE BILIRUBIN UA Negative NEGATIVE KETONES UA Negative NEGATIVE SPECIFIC GRAVITY UA 1.025 1.005 - 1.035 BLOOD UA Moderate 2+ NEGATIVE PH UA 7.5 5 - 9 PROTEIN UA 3+ NEGATIVE UROBILINOGEN UA 0.02 E.U/DL NORMAL MG/DL LEUKOCYTE ESTERASE UA Negative NEGATIVE NITRITE UA Negative NEGATIVE REDUCING SUBSTANCES URINE NEGATIVE Results for orders placed or performed in visit on 12/27/18 (from the past 403 hour(s)) BASIC METABOLIC PANEL Collection Time: 12/27/18 9:46 AM Result Value Ref Range GLUCOSE 161 (H) 70 - 99 MG/DL BLOOD UREA NITROGEN 19 8 - 23 MG/DL CREATININE 1.18 0.80 - 1.40 MG/DL EGFR AA 76 >60 ML/MIN/1.73 EGFR 65 >60 ML/MIN/1.73 SODIUM 138 133 - 146 MEQ/L POTASSIUM 5.2 3.5 - 5.4 MEQ/L CHLORIDE 99 95 - 107 MEQ/L CO2 22 19 - 31 MEQ/L CALCIUM 9.6 8.5 - 10.5 MG/DL Results for orders placed or performed in visit on 12/05/18 (from the past 403 hour(s)) POCT GLUCOSE Collection Time: 12/05/18 7:52 AM Result Value Ref Range GLUCOSE P.O.C. 223 (H) 70 - 110 mg/dL POCT GLUCOSE Collection Time: 12/05/18 10:50 AM Result Value Ref Range GLUCOSE P.O.C. 232 (H) 70 - 110 mg/dL Results for orders placed or performed in visit on 11/13/18 (from the past 403 hour(s)) URINE CULTURE Collection Time: 11/29/18 11:34 AM Result Value Ref Range CULTURE YANICK ALBICANS (A) CBC W/AUTO DIFF WITH PLATELETS Collection Time: 11/29/18 11:34 AM Result Value Ref Range WHITE BLOOD CELL COUNT 11.3 (H) 3.5 - 10.5 K/ L RED BLOOD CELL COUNT 4.24 (L) 4.63 - 6.08 M/ L HEMOGLOBIN 12.0 (L) 13.7 - 17.5 GM/DL HEMATOCRIT 36.2 (L) 40.1 - 51.0 % MEAN CORPUSCULAR VOLUME 85.4 79.0 - 92.2 fL MEAN CORPUSCULAR HEMOGLOBIN 28.3 25.7 - 32.2 pg MEAN CORPUSCULAR HEMOGLOBIN CONC 33.1 32.3 - 36.5 GM/DL RED CELL DISTRIBUTION WIDTH 13.5 11.6 - 14.4 % PLATELET COUNT 426 150 - 450 K/CU MM MEAN PLATELET VOLUME 9.5 9.4 - 12.4 fL NUCLEATED RED BLOOD CELLS 0 0 - 0 /100 WBC NEUTROPHILS % 74 % LYMPHOCYTES % 17 % MONOCYTES % 6 % EOSINOPHILS % 1 % BASOPHILS % 1 % NEUTROPHILS ABSOLUTE COUNT 8.40 (H) 1.78 - 5.38 K/ L LYMPHOCYTES ABSOLUTE COUNT 1.86 1.32 - 3.57 K/ L MONOCYTES ABSOLUTE COUNT 0.71 0.30 - 0.82 K/ L EOSINOPHILS ABSOLUTE COUNT 0.15 0.04 - 0.54 K/ L BASOPHILS ABSOLUTE COUNT 0.12 (H) 0.01 - 0.08 K/ L IMMATURE GRANULOCYTES 0 0 - 1 % PROTIME-INR Collection Time: 11/29/18 11:34 AM Result Value Ref Range PROTIME 13.2 11.7 - 14.7 seconds INR 1.0 <=5.9 APTT Collection Time: 11/29/18 11:34 AM Result Value Ref Range PARTIAL THROMBOPLASTIN TIME 31.6 22.5 - 36.0 seconds BASIC METABOLIC PANEL Collection Time: 11/29/18 11:34 AM Result Value Ref Range SODIUM 134 (L) 136 - 145 meq/L POTASSIUM 5.4 (H) 3.5 - 5.1 meq/L CHLORIDE 101 98 - 107 meq/L CO2 26 22 - 29 meq/L BLOOD UREA NITROGEN 35 (H) 7 - 21 mg/dL CREATININE 1.49 (H) 0.57 - 1.25 mg/dL GLUCOSE 291 (H) 70 - 105 mg/dL CALCIUM 9.6 8.4 - 10.2 mg/dL EGFR 48 mL/min/1.73 sq m URINALYSIS AUTO W/SCOPE Collection Time: 11/29/18 11:34 AM Result Value Ref Range COLOR UA Yellow CLARITY UA Cloudy SPECIFIC GRAVITY UA 1.016 1.001 - 1.035 PH UA 6.0 5.0 - 8.0 PROTEIN UA 200 mg/dL (A) Negative GLUCOSE UA >1000 mg/dL (A) Negative KETONES UA Negative Negative BILIRUBIN UA Negative Negative BLOOD UA Moderate (A) Negative NITRITE UA Negative Negative LEUKOCYTE ESTERASE UA Large (A) Negative UROBILINOGEN UA 0.2 0.2 - 1.0 mg/dL RBC UA 71 /HPF WBC UA 1248 /HPF YEAST Many SOURCE Results for orders placed or performed in visit on 10/25/18 (from the past 4032 hour(s)) BASIC METABOLIC PANEL Collection Time: 10/25/18 2:52 PM Result Value Ref Range GLUCOSE 304 (H) 70 - 99 MG/DL BLOOD UREA NITROGEN 25 (H) 8 - 23 MG/DL CREATININE 1.02 0.80 - 1.40 MG/DL EGFR AA 90 >60 ML/MIN/1.73 EGFR 78 >60 ML/MIN/1.73 SODIUM 134 133 - 146 MEQ/L POTASSIUM 5.9 (H) 3.5 - 5.4 MEQ/L CHLORIDE 95 95 - 107 MEQ/L CO2 27 19 - 31 MEQ/L CALCIUM 9.7 8.5 - 10.5 MG/DL Results for orders placed or performed in visit on 10/19/18 (from the past 4032 hour(s)) POCT URINALYSIS DIPSTICK Collection Time: 10/19/18 9:28 AM Result Value Ref Range COLOR UA Rahel YELLOW/STRAW CLARITY UA Slightly Cloudy CLEAR GLUCOSE UA 1+ NEGATIVE BILIRUBIN UA Negative NEGATIVE KETONES UA Positive NEGATIVE SPECIFIC GRAVITY UA 1.030 1.005 - 1.035 BLOOD UA Moderate 2+ NEGATIVE PH UA 7.0 5 - 9 PROTEIN UA 2+ NEGATIVE UROBILINOGEN UA 0.02 E.U/DL NORMAL MG/DL LEUKOCYTE ESTERASE UA 1+ NEGATIVE NITRITE UA Negative NEGATIVE REDUCING SUBSTANCES URINE NEGATIVE Results for orders placed or performed in visit on 10/03/18 (from the past 4032 hour(s)) URINALYSIS AUTO W/SCOPE Collection Time: 10/03/18 12:00 AM Result Value Ref Range COLOR UA YELLOW YELLOW-STRAW CLARITY UA CLEAR CLEAR SPECIFIC GRAVITY UA 1.015 1.005 - 1.035 LEUKOCYTE ESTERASE UA NEGATIVE NEGATIVE NITRITE UA NEGATIVE NEGATIVE PH UA 6.5 5.0 - 9.0 PROTEIN UA 2+ (A) NEGATIVE GLUCOSE UA 2+ (A) NEGATIVE KETONES UA NEGATIVE NEGATIVE UROBILINOGEN UA 0.2 <=2.0 MG/DL BILIRUBIN UA NEGATIVE NEGATIVE OCCULT BLOOD UA NEGATIVE NEGATIVE WBC UA 0-5 0 - 5 /HPF RBC UA 0 0 - 5 /HPF EPITHELIAL CELLS 0 0 - 5 /HPF BACTERIA NEGATIVE NEGATIVE CRYSTALS NEGATIVE NONE /HPF CASTS, URINE NEGATIVE NONE-TRACE /LPF POCT URINALYSIS DIPSTICK Collection Time: 10/03/18 12:00 AM Result Value Ref Range COLOR UA Yellow YELLOW/STRAW CLARITY UA Clear CLEAR GLUCOSE UA 4+ NEGATIVE BILIRUBIN UA Negative NEGATIVE KETONES UA Negative NEGATIVE SPECIFIC GRAVITY UA 1.000 (A) 1.005 - 1.035 BLOOD UA Negative NEGATIVE PH UA 5.0 5 - 9 PROTEIN UA 3+ NEGATIVE UROBILINOGEN UA 0.02 E.U/DL NORMAL MG/DL LEUKOCYTE ESTERASE UA Negative NEGATIVE NITRITE UA Negative NEGATIVE REDUCING SUBSTANCES URINE NEGATIVE BASIC METABOLIC PANEL Collection Time: 10/03/18 2:35 PM Result Value Ref Range GLUCOSE 206 (H) 70 - 99 MG/DL BLOOD UREA NITROGEN 22 8 - 23 MG/DL CREATININE 1.09 0.80 - 1.40 MG/DL EGFR AA 83 >60 ML/MIN/1.73 EGFR 72 >60 ML/MIN/1.73 SODIUM 137 133 - 146 MEQ/L POTASSIUM 5.6 (H) 3.5 - 5.4 MEQ/L CHLORIDE 98 95 - 107 MEQ/L CO2 27 19 - 31 MEQ/L CALCIUM 10.0 8.5 - 10.5 MG/DL CULTURE, URINE/SENSITIVITY ON ALL Collection Time: 10/04/18 7:30 AM Result Value Ref Range CULTURE, URINE/SENSITIVITY ON ALL SPECIMEN NUMBER: [id number] (A) Most Recent Imaging: @RADRESULTS@ Assessment: 1. Detrusor underactivity/Incomplete emptying 2. Bilateral hydroureteronephrosis s/p ureteral balloon dilation and stent place ment and removal by Dr. Dial Plan: 1. Remove vivar 2. Restart CIC TID with coude catheter 3. Refer to Dr. Moreno for bilateral hydroureteronephrosis 4. RTC 6 months with pvr documented in this encounter Plan of Treatment Care Team Description Date Type Specialty Tariq Loyola MD [address] [facility] [address], [place] [address] 05/15/2019 Office Visit Urology Order Schedule Name Type Priority Associated Diagnoses Ordered: 03/09/2019 AMB REF TO UROLOGY [facility] Outpatient Routine Hydronephrosis, Referral unspecified hydronephrosis type Health Maintenance Due Date Last Done Comments COLON CANCER SCREENIN1955 COLONOSCOPY TETANUS SHOT (ADULT) 1970 BMI FOLLOW UP PLAN 1973 HEPATITIS C SCREENING 1973 HIV SCREENING 1973 FLU VACCINE > 6 MONTHS 03/01/2019 documented as of this encounter Results Not on filedocumented in this encounter Visit Diagnoses Diagnosis Hydronephrosis, unspecified hydronephrosis type - Primary documented in this encounter Insurance Type Payer Benefit Subscriber ID Effective Phone Address Plan / Dates Group [facility] xxxxxxxxxx 2018-P [facility] [address] [id number] - [place] [address] ([place]) [place] [address] documented as of this encounter
[2019-03-22 11:30] VITALS: BP 147/72
== END | disposition home or self-care (01) ==
LOC: OR 08:17
PROVIDERS: ATTEND Ophthalmology
DX: H25.12 Age-related nuclear cataract, left eye (principal); H25.89 Other age-related cataract; E11.9 Type 2 diabetes mellitus without complications; K21.9 Gastro-esophageal reflux disease without esophagitis; D64.9 Anemia, unspecified; I10 Essential (primary) hypertension; M19.90 Unspecified osteoarthritis, unspecified site; Z72.0 Tobacco use; Z79.4 Long term (current) use of insulin; Z79.84 Long term (current) use of oral hypoglycemic drugs
CPT/HCPCS: 36415; 66982; 82948; J0171; J2001; J2250; J3010; V2632